=== PATIENT | male | born 1950 | race Caucasian/White ===

== ENCOUNTER 2020-11-17 09:23 | Emergency (ER) | payer OTHER ==
[~2020-11-17] VITALS: Ht 175.3 cm; Wt 81.7 kg
[2020-11-17] MEDS ORDERED: CLEOCIN HCL300 MG PO (11:51)
[2020-11-17 12:09] VITALS: BP 122/53
== END 2020-11-17 12:10 | disposition home or self-care (01) ==
LOC: EDSEX 09:23 → ER 09:23
DX: L03.116 Cellulitis of left lower limb (principal)

== ENCOUNTER → 2020-11-17 | Outpatient (CLI) | payer OTHER ==
[~2020-11-17] MED LIST: CLEOCIN HCL300 MG PO
== END ==
LOC: EDSEX 07:45 → HYPER 07:45
PROVIDERS: ATTEND Specialist
DX: S51.012A Laceration without foreign body of left elbow, initial encounter (principal); S51.822A Laceration with foreign body of left forearm, initial encounter; S61.412A Laceration without foreign body of left hand, initial encounter; S81.012A Laceration without foreign body, left knee, initial encounter; R60.9 Edema, unspecified; I48.91 Unspecified atrial fibrillation; Z79.82 Long term (current) use of aspirin; Z79.01 Long term (current) use of anticoagulants; Z87.891 Personal history of nicotine dependence; Z79.899 Other long term (current) drug therapy; W18.39XA Other fall on same level, initial encounter; Y93.89 Activity, other specified; Y92.89 Other specified places as the place of occurrence of the external cause; Y99.8 Other external cause status

== ENCOUNTER → 2020-11-24 | Outpatient (CLI) | payer OTHER | LOC: HYPER 07:52 | PROVIDERS: ATTEND Specialist | DX: S51.012D Laceration without foreign body of left elbow, subsequent encounter (principal); S61.412D Laceration without foreign body of left hand, subsequent encounter; L03.116 Cellulitis of left lower limb; I48.91 Unspecified atrial fibrillation; R60.9 Edema, unspecified; I95.9 Hypotension, unspecified; Z79.82 Long term (current) use of aspirin; Z79.01 Long term (current) use of anticoagulants; Z87.891 Personal history of nicotine dependence; Z79.899 Other long term (current) drug therapy; W18.39XD Other fall on same level, subsequent encounter ==

== ENCOUNTER → 2020-12-08 | Outpatient (CLI) | payer OTHER | LOC: HYPER 07:37 | PROVIDERS: ATTEND Specialist | DX: S51.012D Laceration without foreign body of left elbow, subsequent encounter (principal); S41.112D Laceration without foreign body of left upper arm, subsequent encounter; S41.111D Laceration without foreign body of right upper arm, subsequent encounter; S40.811D Abrasion of right upper arm, subsequent encounter; S40.021D Contusion of right upper arm, subsequent encounter; S40.812D Abrasion of left upper arm, subsequent encounter; L03.116 Cellulitis of left lower limb; R60.9 Edema, unspecified; I48.91 Unspecified atrial fibrillation; I95.9 Hypotension, unspecified; Z79.82 Long term (current) use of aspirin; Z79.01 Long term (current) use of anticoagulants; Z87.891 Personal history of nicotine dependence; W18.39XD Other fall on same level, subsequent encounter ==